=== PATIENT | female | born 1980 | race Caucasian/White ===

== ENCOUNTER 2020-02-23 10:00 | Day surgery (SDC) | payer OTHER ==
[~2020-02-23] VITALS: Ht 182.9 cm; Wt 97.3 kg
[~2020-02-23 10:00] MED LIST: ACETAMINOPHEN 650 MG SUPP PR ONE; BUPR300T92 PO; DOCU5LIQ PO; FISH1000 PO; IBUP80TA PO; LIDOCAINE 1% MDV 20ML VIAL SQ PRN; LR 1,000 ML IV ONE; NEXI20CA PO; OMEP1CAP73 PO; OXYC1TAB23 PO; PROZ20CA11 PO; SERT-141 PO; SUPETAB44 PO; TRAZ-252 PO
[2020-02-23 10:34] LABS: HEMATOCRIT 40.3 % (36.0-47.0); HEMOGLOBIN 13.4 g/dl (12.0-15.5); MEAN CORPUSCULAR HEMOGLOBIN 29.6 pg (27.0-33.0); MEAN CORPUSCULAR HGB CONC 33.3 g/dl (32.0-36.5); PLATELET COUNT, AUTOMATED 291 10^3/uL (150-450); RED BLOOD COUNT 4.53 10^6/uL (4.00-5.40)
[2020-02-23] MEDS ORDERED: MELA3TAB49 PO (10:39)
[2020-02-23 11:04] LABS: BLOOD UREA NITROGEN 11 MG/DL (7-18); CALCIUM LEVEL 9.1 MG/DL (8.5-10.1); CARBON DIOXIDE LEVEL 28 MEQ/L (21-32); CHLORIDE LEVEL 108 MEQ/L (98-107); CREATININE FOR GFR 0.76 MG/DL (0.55-1.30); GLOMERULAR FILTRATION RATE > 60.0 (>60); GLUCOSE, FASTING 98 MG/DL (70-100); HCG, SERUM QUANTITATIVE < 1.0 MIU/ML; POTASSIUM SERUM 4.4 MEQ/L (3.5-5.1); SODIUM LEVEL 139 MEQ/L (136-145)
[2020-02-23] MEDS ORDERED: BUPIVACAINE HCL 0.5% 10ML VIAL As Ordered ONE (12:06)
[2020-02-23] MEDS ORDERED: ACETAMINOPHEN 650 MG SUPP As Ordered ONE (12:06)
[2020-02-23] MEDS ORDERED: ROCURONIUM BROMIDE 50 MG/5 ML VIAL As Ordered ONE (12:08)
[2020-02-23] MEDS ORDERED: METOCLOPRAMIDE INJ 10MG/2ML VIAL (J2765 PER 1) As Ordered ONE (12:08)
[2020-02-23] MEDS ORDERED: LIDOCAINE 2% 100MG/5ML SDV (FOR ANES.) As Ordered ONE (12:08)
[2020-02-23] MEDS ORDERED: KETOROLAC 60MG 2ML VIAL As Ordered ONE (12:08)
[2020-02-23] MEDS ORDERED: propofoL 200 MG/20 ML VIAL As Ordered ONE (12:08)
[2020-02-23] MEDS ORDERED: MIDAZOLAM INJ 2MG/2ML VIAL (J2250 PER 1MG) As Ordered ONE (12:08)
[2020-02-23] MEDS ORDERED: ONDANSETRON 4MG/2ML VIAL As Ordered ONE ×2 (12:08→14:00)
[2020-02-23] MEDS ORDERED: fentaNYL 100 MCG/2 ML INJECTION (J3010) As Ordered ONE ×2 (12:08→14:00)
[2020-02-23] MEDS ORDERED: oxyCODONE 5MG TAB As Ordered ONE (14:00)
[2020-02-23] MEDS ORDERED: LR 1,000 ML IV SCH (14:15)
[2020-02-23] MEDS ORDERED: METOCLOPRAMIDE INJ 10MG/2ML VIAL (J2765 PER 1) IV PRN (14:15)
[2020-02-23] MEDS ORDERED: ONDANSETRON 4MG/2ML VIAL IV PRN (14:15)
[2020-02-23] MEDS ORDERED: fentaNYL 100 MCG/2 ML INJECTION (J3010) IV PRN (14:15)
[2020-02-23] MEDS: oxyCODONE 5MG TAB PO PRN ×2 (14:27→15:03)
[2020-02-23 16:11] VITALS: BP 149/90
[2020-02-23] MEDS ORDERED: KETOROLAC 30 MG/ML 1ML VIAL IV PRN (19:00)
--- NOTE | 2020-03-03 12:13 | RO ---
DATE OF PROCEDURE: 02/23/2020 PREOPERATIVE DIAGNOSIS: Satisfied parity, chronic pelvic pain post Essure and plugs. POSTOPERATIVE DIAGNOSIS: Satisfied parity, chronic pelvic pain post Essure and plugs. OPERATION PROPOSED: Operative laparoscopy, bilateral salpingectomy, removal of Essure and plugs. SURGEON: Kel Wen MD DUMBWAITER OPERATOR: Dr. Fields for extraction, retraction and visualization without which we could not complete the procedure. ANESTHESIA: General. ESTIMATED BLOOD LOSS: Less than 20 mL. DESCRIPTION OF PROCEDURE: After adequate anesthesia, prepped and draped in the lithotomy position, Schmitt catheter in the bladder draining clear urine. Acetaminophen suppository 1300 mg per rectum, sequentials in place. No antibiotics required. COVID negative. A single-tooth tenaculum was placed on the anterior lip of the cervix. Uterine elevator was placed in the cervical canal. Reprepping and draping a small subumbilical incision was made. Veress needle was applied. 3.8 liters of CO2 to flow rate of 14 mL to a pressure of 15. Direct visualization. No evidence of hemorrhage, perforation. Panoramic review - right upper quadrant was normal, left upper quadrant was normal, right round ligament was normal, left round ligament was normal, cul-de-sac was clear, both ovaries appeared to be normal. Both tubes to the fimbriated end were visualized. Uterus was midline. A 5 mm port was placed on either side, then grasping the right tube using the LigaSure removed the tube with the Essure in place up to the fimbriated end. We then removed the tube from the fimbriated end up to a centimeter from the cornua. We then removed the tube with the Essure from there exposing the cornua. We then pulled out the rest of the remaining Essure coiling, found the plug, removed the plug separately and the right tube the coiling and the plug were taken out through the 5 mm port, sent off to pathology under separate cover. We then went ahead and reviewed the other side again elevating the tube at the fimbriated end and on the left side using the LigaSure removed the tube up to the cornua. With the Essure in place removed that, then getting to the cornua opened up the cornua, removed the remaining Essure coiling and the plug and that was sent off to pathology under separate cover. We then visualized the entire pelvis. There was no evidence of active bleeding. We then deflated to 3 mm pressure, removed the two 5 mm ports, then removed the mainstem port. With that done we did subcuticular stitches in all three sites. Marcaine 0.25% to all three sites. Skin tapes to all three sites. Then, going below we removed the Schmitt catheter, removed the uterine elevator and the single-tooth tenaculum, and the patient was sent to recovery in good condition.
== END 2020-02-23 16:20 | disposition home or self-care (01) ==
LOC: M SDC 10:00
PROVIDERS: ATTEND Obstetrics & Gynecology
DX: Z30.2 Encounter for sterilization (principal); G47.30 Sleep apnea, unspecified; K21.9 Gastro-esophageal reflux disease without esophagitis; D64.9 Anemia, unspecified; Z79.899 Other long term (current) drug therapy; F41.9 Anxiety disorder, unspecified; F32.9 Major depressive disorder, single episode, unspecified
CPT/HCPCS: 36415; 58661; 80048; 84702; 85027; 88302; J1885; J2250; J2405; J2765; J3010

== ENCOUNTER → 2022-05-25 | Outpatient (CLI) | payer OTHER ==
[~2022-05-25] MED LIST changes: -ACETAMINOPHEN 650 MG SUPP PR ONE; -LIDOCAINE 1% MDV 20ML VIAL SQ PRN; -LR 1,000 ML IV ONE; +MELA3TAB49 PO
== END ==
LOC: M WHC 07:23
PROVIDERS: ATTEND Physician Assistant Medical
DX: Z12.31 Encounter for screening mammogram for malignant neoplasm of breast (principal); R92.8 Other abnormal and inconclusive findings on diagnostic imaging of breast

== ENCOUNTER → 2022-06-29 | Outpatient (CLI) | payer OTHER | LOC: M WHC 14:10 | PROVIDERS: ATTEND Physician Assistant Medical | DX: R92.8 Other abnormal and inconclusive findings on diagnostic imaging of breast (principal) | CPT/HCPCS: 76642; 77065; G0279 ==

== ENCOUNTER → 2023-03-26 | Outpatient (CLI) | payer OTHER | LOC: M WHC 11:16 | PROVIDERS: ATTEND Physician Assistant Medical | DX: R92.8 Other abnormal and inconclusive findings on diagnostic imaging of breast (principal) | CPT/HCPCS: 76642; 77065; G0279 ==

== ENCOUNTER → 2023-11-15 | Outpatient (CLI) | payer OTHER | LOC: M WHC 12:03 | PROVIDERS: ATTEND Physician Assistant Medical | DX: R92.8 Other abnormal and inconclusive findings on diagnostic imaging of breast (principal); Z12.31 Encounter for screening mammogram for malignant neoplasm of breast ==

== ENCOUNTER → 2024-11-30 | Outpatient (CLI) | payer OTHER ==
[~2024-11-30] MED LIST changes: +BUPR-597 PO; -BUPR300T92 PO
== END ==
LOC: M WHC 16:33
PROVIDERS: ATTEND Physician Assistant Medical
DX: Z12.31 Encounter for screening mammogram for malignant neoplasm of breast (principal)